=== PATIENT | female | born 2000 | race Two or more races ===

== ENCOUNTER 2024-09-19 16:48 | Emergency (ER) | payer BC ==
[~2024-09-19] VITALS: Ht 160 cm; Wt 63.5 kg
[2024-09-19] MEDS ORDERED: diphenhydrAMINE 50 MG/1 ML VIAL ONE (17:35)
[2024-09-19] MEDS ORDERED: KETOROLAC TROMETHAMINE 30 MG INJ ONE (17:35)
[2024-09-19] MEDS: IV NORMAL SALINE 1000 ML BAG IV ONE (17:40)
[2024-09-19] MEDS: KETOROLAC TROMETHAMINE 30 MG INJ IVP ONE (17:42)
[2024-09-19] MEDS: diphenhydrAMINE 50 MG/1 ML VIAL IV ONE (17:42)
[2024-09-19] MEDS ORDERED: METOCLOPRAMIDE HCL 10 MG/2 ML VIAL ONE (17:43)
[2024-09-19] MEDS: METOCLOPRAMIDE HCL 10 MG/2 ML VIAL IV ONE (17:46)
[2024-09-19] MEDS ORDERED: METO-295 PO (18:15)
[2024-09-19] MEDS ORDERED: IBUP-1955 PO (18:15)
[2024-09-19 18:24] VITALS: BP 117/79; TEMP 98; O2SAT 100
== END 2024-09-19 18:24 | disposition home or self-care (01) ==
LOC: ER 16:48
DX: G43.009 Migraine without aura, not intractable, without status migrainosus (principal); F17.290 Nicotine dependence, other tobacco product, uncomplicated; Z79.899 Other long term (current) drug therapy
CPT/HCPCS: 70450; A4606; A4663; J1200; J1885; J2765; J7040